=== PATIENT | female | born 1960 | race Caucasian/White ===

== ENCOUNTER → 2023-12-27 | Outpatient (CLI) | payer MEDICARE, BC, SELFPAY ==
[2023-12-27 14:15] LABS: Free T3 3.7 pg/mL (2.3-4.2); Free T4 (Free Thyroxine) 1.95 ng/dL (0.89-1.76); Thyroid Stimulating Hormone 0.11 uIU/mL (0.55-4.78)
== END | disposition home or self-care (01) ==
LOC: COPL 12:51
PROVIDERS: PCP Nurse Practitioner Family; Referring Provider Nurse Practitioner Family; Visit Provider Nurse Practitioner Family
DX: E03.9 Hypothyroidism, unspecified (principal)
CPT/HCPCS: 36415; 84439; 84443; 84481

== ENCOUNTER → 2024-03-05 | Outpatient (CLI) | payer MEDICARE, BC, SELFPAY ==
[2024-03-05 14:24] LABS: Basophils % (Auto) 0 % (0-2.5); Eosinophils # (Auto) 0.2 Thou/mm3 (0.0-0.5); Eosinophils % (Auto) 3 % (0-10); Hematocrit 40.5 % (36.0-46.0); Hemoglobin 13.6 g/dL (12.0-16.0); Immature Granulocytes % (Auto) 0 % (0-0); Immature Granulocytes Auto 0.01 Thou/mm3 (0.00-0.00); Lymphocytes # (Auto) 2.4 Thou/mm3 (1.0-4.8); Lymphocytes % (Auto) 30 % (10-50); Mean Corpuscular HGB Conc 33.6 g/dl (31.0-37.0); Mean Corpuscular Hemoglobin 29.6 pg (25.0-35.0); Mean Corpuscular Volume 88 fL (80-100); Monocytes # (Auto) 0.6 Thou/mm3 (0.0-0.8); Monocytes % (Auto) 7 % (0-12); Neutrophils # (Auto) 4.9 Thou/mm3 (1.8-7.7); Neutrophils % (Auto) 60 % (37-80); Nucleated Red Blood Cell % 0 /100 WBC (0); Platelet Count 220 Thou/mm3 (140-440); RDW Standard Deviation 38.9 fL (36.4-46.3); Red Blood Count 4.59 Miln/mm3 (4.00-5.20); White Blood Count 8.1 Thou/mm3 (3.6-11.0)
[2024-03-05 14:42] LABS: Alanine Aminotransferase 17 U/L (10-49); Albumin, Serum 4.7 gm/dL (3.4-4.8); Albumin/Globulin Ratio 1.7 (1.2-2.2); Alkaline Phosphatase 59 U/L (46-116); Anion Gap 11 (7-16); Aspartate Amino Transferase 21 U/L (0-34); BUN/Creatinine Ratio 24 Ratio (12-20); Bilirubin,Total 0.4 mg/dL (0.3-1.2); Blood Urea Nitrogen 19 mg/dL (9-23); Calcium 10.3 mg/dL (8.3-10.6); Calcium (Corrected) 10.3 mg/dL (8.5-10.1); Carbon Dioxide 23.6 mMol/L (20.0-31.0); Chloride 106 mMol/L (98-107); Creatinine (Component) 0.8 mg/dL (0.6-1.3); Globulin 2.7 gm/dL (2.3-3.5); Glucose 92 mg/dL (74-106); Osmolality,Calculated 283 (275-295); Potassium 4.4 mMol/L (3.4-5.1); Sodium 141 mMol/L (136-145); Thyroid Stimulating Hormone 0.15 uIU/mL (0.55-4.78); Total Protein 7.4 gm/dL (5.7-8.2); eGFR > 60 See Note
[2024-03-14 05:00] LABS: Almond (f20) IgE <0.10 kU/L; Cashew Nut (f202) IgE <0.10 kU/L; Codfish (f3) IgE <0.10 kU/L; Cow's Milk (f2) IgE 0.23 kU/L; Egg White (F1) IgE <0.10 kU/L; Hazelnut (F17) IgE <0.10 kU/L; Peanut (F13) IgE <0.10 kU/L; Salmon (F41) IgE <0.10 kU/L; Scallop (F338) IgE <0.10 kU/L; Sesame Seed (F10) IgE <0.10 kU/L; Shrimp (F24) IgE <0.10 kU/L; Soybean (F14) IgE <0.10 kU/L; Tuna (f40) IgE <0.10 kU/L; Walnut (F256) IgE <0.10 kU/L; Wheat (F4) IgE <0.10 kU/L
[2024-03-14 07:00] LABS: Almond (f20) Class 0; Cashew Nut (f202) Class 0; Codfish (f3) Class 0; Cow's Milk (f2) Class 0/1; Hazelnut (F17) Class 0; Salmon (F41) Class 0; Scallop (F338) Class 0; Sesame Seed (F10) Class 0; Shrimp (F24) Class 0; Tuna (f40) Class 0; Walnut (F256) Class 0
[2024-03-14 07:01] LABS: Egg White (F1) Class 0; Peanut (F13) Class 0; Soybean (F14) Class 0; Wheat (F4) Class 0
== END | disposition home or self-care (01) ==
LOC: COPL 13:37
PROVIDERS: PCP Family Medicine; Referring Provider Nurse Practitioner Family; Visit Provider Nurse Practitioner Family
DX: E03.9 Hypothyroidism, unspecified (principal); L03.012 Cellulitis of left finger; T78.1XXA Other adverse food reactions, not elsewhere classified, initial encounter
CPT/HCPCS: 36415; 80053; 84439; 84443; 85025; 86003

== ENCOUNTER → 2024-05-04 | Outpatient (CLI) | payer MEDICARE, BC, SELFPAY ==
--- NOTE | 2024-05-04 13:29 | XR_ITS ---
Examination: Breast ultrasound, unilateral, right complete Date and time of exam: May 04, 2024 1428 hours INDICATIONS: Right breast pain in the upper right breast 11:00 position one week, presenting history right breast cancer, lumpectomy upper outer right breast 2013 scarring in the right breast 9 to 12:00 position Technique: Real-time reed scale ultrasonographic imaging performed right breast including all 4 quadrants as well as nipple retroareolar and axillary region. Findings: 11:00 area of architectural distortion 16 x 11 x 11 mm IMPRESSION: BI-RADS Category 3: Probably benign findings 3 month follow-up right breast sonogram is needed to document stability of focal area of architectural distortion 16 x 11 x 11 mm, prior outside ultrasound examinations would be highly useful for comparison, also follow-up diagnostic mammography would be helpful if this has not been performed in the last 6 months
--- NOTE | 2024-05-04 13:31 | XR_ITS ---
Examination: Abdomen AP single view Technique: AP portable supine abdomen, single view Exam date and time: April 26, 2024 1438 hours INDICATIONS: Abdominal pain 2 weeks, clinical diagnosis kidney stones FINDINGS: No renal calculi Irregular calcification in distribution of the left renal pelvis Intact osseous structures IMPRESSION: Recommend renal sonography to exclude 2 mm calculus in the left renal pelvis
== END | disposition home or self-care (01) ==
LOC: CDIM 13:21
PROVIDERS: PCP Nurse Practitioner Family; Referring Provider Nurse Practitioner Family; Visit Provider Nurse Practitioner Family
DX: N20.0 Calculus of kidney (principal); R92.8 Other abnormal and inconclusive findings on diagnostic imaging of breast
CPT/HCPCS: 74018; 76641

== ENCOUNTER → 2024-06-06 | Outpatient (CLI) | payer MEDICARE, BC, SELFPAY ==
--- NOTE | 2024-06-06 | XR_ITS ---
Examination: Lumbar spine 3 views TECHNIQUE: AP lateral coned lateral lower lumbar spine 3 views Exam date and time: June 06, 2024 1201 hours INDICATIONS: Low back pain beginning 2 weeks ago. FINDINGS: Adequate alignment lumbar vertebral bodies Mild to moderate degenerative disc disease L4-L5, L5-S1 No spondylolisthesis IMPRESSION: Mild to moderate degenerative disc disease L4-L5, L5-S1
== END | disposition home or self-care (01) ==
PROVIDERS: PCP Nurse Practitioner Family; Referring Provider Nurse Practitioner Family; Visit Provider Nurse Practitioner Family
DX: M51.360 Other intervertebral disc degeneration, lumbar region with discogenic back pain only (principal); M51.370 Other intervertebral disc degeneration, lumbosacral region with discogenic back pain only
CPT/HCPCS: 72100

== ENCOUNTER → 2024-07-12 | Outpatient (BNVA) | payer MEDICARE, BC, SELFPAY | END | disposition home or self-care (01) | PROVIDERS: PCP Nurse Practitioner Family; Referring Provider Nurse Practitioner Family; Visit Provider Urology | DX: N28.1 Cyst of kidney, acquired (principal); N20.0 Calculus of kidney; C50.911 Malignant neoplasm of unspecified site of right female breast; E03.9 Hypothyroidism, unspecified; F41.9 Anxiety disorder, unspecified; I10 Essential (primary) hypertension; I71.21 Aneurysm of the ascending aorta, without rupture | CPT/HCPCS: 81003; 99212; G0463 ==